=== PATIENT | female | born 1970 | race Caucasian/White ===

== ENCOUNTER → 2021-04-10 | Outpatient (CLI) | payer OTHER ==
[~2021-04-10] MED LIST: ADULT LOW DOSE81 MG PO; HYDROCHLOROTH12.5 MG PO; MACROBID 100 M100 M1 PO; NAPROSYN500 MG PO; PRINIVIL10 MG PO
--- NOTE | 2021-04-18 19:29 | PF ---
[place] [address] PULMONARY FUNCTION REPORT Name: PETRA CLEMENT Room: [facility]#: [id number] Admission: 04/10/21 Attend Phys: Jt Brink MD Discharge: Date of : 74 Report #: [id number] THIS REPORT FOR: cc: Lizbeth Lambert Jacqueline D. FNP Pervez, Adeel MD ~ DATE OF VISIT: 04/10/2021 The FEV1/FVC ratio is normal at 84% with an FVC normal at 93%, the FEV1 is also normal at 97%. The FEF 25/75 is normal at 95%. After the administration of a bronchodilator, there is no significant increase in any of these values. The patient's post-bronchodilator FEV1 is 2.65 liters. The total lung capacity is normal at 100% with residual volume normal at 92%. The DLCO as adjusted for hemoglobin is mildly decreased to 76%. IMPRESSION: Essentially normal lung function tests with the exception of mild decrease in DLCO as adjusted for hemoglobin to 76%. <ELECTRONICALLY SIGNED> By: Jt Brink MD 04/18/21 1929 1622 1934Aever Brink MD /nt
== END ==
LOC: M.PUL 13:52
PROVIDERS: ATTEND Internal Medicine Critical Care Medicine
DX: R06.02 Shortness of breath (principal)